=== PATIENT | male | born 1945 | race Caucasian/White ===

== ENCOUNTER → 2016-08-06 | Outpatient (REF) | payer MEDICARE ==
[2016-08-09 00:07] LABS: Lyme Disease IgG/IgM Antibodie <0.91 ISR (0.00-0.90); Lyme Disease IgM Ab Quantitati <0.80 index (0.00-0.79)
== END ==
LOC: M LAB REF 16:37
PROVIDERS: ATTEND Nurse Practitioner Family
DX: M79.1 Myalgia (principal); M25.50 Pain in unspecified joint

== ENCOUNTER → 2017-10-23 | Outpatient (CLI) | payer MEDICARE ==
[2017-10-23 10:48] LABS: HEMATOCRIT 44.7 % (42.0-52.0); HEMOGLOBIN 15.1 g/dl (13.5-17.5)
[2017-10-23 11:02] LABS: INR 0.94; PARTIAL THROMBOPLASTIN TIME 28.4 SECONDS (25.4-37.6); PROTHROMBIN TIME 12.7 SECONDS (12.1-14.4)
[2017-10-23 11:21] LABS: ANION GAP 7 MEQ/L (8-16); BLOOD UREA NITROGEN 17 MG/DL (7-18); CALCIUM LEVEL 8.7 MG/DL (8.8-10.2); CARBON DIOXIDE LEVEL 28 MEQ/L (21-32); CHLORIDE LEVEL 107 MEQ/L (98-107); CREATININE FOR GFR 0.99 MG/DL (0.70-1.30); GLOMERULAR FILTRATION RATE > 60.0 (>42); GLUCOSE, FASTING 113 MG/DL (70-100); POTASSIUM SERUM 4.5 MEQ/L (3.5-5.1); SODIUM LEVEL 142 MEQ/L (136-145)
== END ==
LOC: M LAB 09:49
DX: Z01.818 Encounter for other preprocedural examination (principal); M48.02 Spinal stenosis, cervical region; J44.9 Chronic obstructive pulmonary disease, unspecified; I48.91 Unspecified atrial fibrillation; I44.7 Left bundle-branch block, unspecified
CPT/HCPCS: 71046

== ENCOUNTER 2017-10-29 08:21 | Inpatient (IN) | payer MEDICARE ==
[2017-10-29] MEDS ORDERED: ROCURONIUM BROMIDE 50 MG/5 ML VIAL As Ordered (08:58)
[2017-10-29] MEDS ORDERED: LIDOCAINE 2% INJ 100 MG/5 ML SDV (FOR ANES.) As Ordered (08:58)
[2017-10-29] MEDS ORDERED: PROPOFOL 200 MG/20 ML VIAL As Ordered ×11 (08:58→14:41)
[2017-10-29] MEDS ORDERED: fentaNYL 100 MCG/2 ML INJECTION (J3010) As Ordered (08:59)
[2017-10-29] MEDS: methylPREDNISolone 250 MG in D5W 100 ML IV (09:45)
[2017-10-29] MEDS: PERCOCET 5MG/325MG TAB PO ×3 (09:45→21:26)
[2017-10-29] MEDS: GABAPENTIN 300 MG CAP PO (09:46)
[2017-10-29] MEDS: LR 1,000 ML IV ×2 (09:46→16:15)
[2017-10-29 09:49] LABS: BEDSIDE GLUCOSE 116 MG/DL (83-110)
[2017-10-29] MEDS: methylPREDNISolone 500 MG VIAL (J2930) As Ordered (10:26)
[2017-10-29] MEDS ORDERED: SUCCINYLCHOLINE 100 MG/5 ML SYRINGE (J0330) As Ordered (10:43)
[2017-10-29] MEDS ORDERED: REMIFENTANIL 1MG 3ML VIAL As Ordered ×4 (10:43→15:11)
[2017-10-29] MEDS ORDERED: ePHEDrine SULFATE 25 MG/5 ML(5MG/ML) SYRINGE As Ordered ×2 (12:42→13:33)
[2017-10-29] MEDS: ceFAZolin 2 GM/D5W 50 ML IV BAG (J0690 PER 500MG) As Ordered (12:42)
[2017-10-29] MEDS ORDERED: PHENYLephrine HCL 500 MCG/5 ML (100MCG/ML) SYRINGE (J2370) As Ordered ×3 (12:42→14:27)
[2017-10-29] MEDS: LIDOCAINE W/EPINEPHRINE 1% 20ML VIAL As Ordered (13:01)
[2017-10-29] MEDS ORDERED: CALCIUM CHLORIDE 10% 1 GM/10 ML SYR As Ordered (13:25)
[2017-10-29] MEDS: BACITRACIN PWD 50,000 UNITS VIAL As Ordered (15:23)
[2017-10-29] MEDS: THROMBIN SOLN 20,000 UNITS KIT As Ordered (15:24)
[2017-10-29] MEDS ORDERED: dexameTHASONE 4 MG/ML 1ML VIAL (J1100) As Ordered (15:33)
[2017-10-29] MEDS ORDERED: ONDANSETRON 4MG/2ML VIAL (J2405) As Ordered (15:33)
[2017-10-29] MEDS ORDERED: GLYCOPYRROLATE INJ 0.2 MG/ML 2 ML VIAL As Ordered (15:34)
[2017-10-29] MEDS ORDERED: METOCLOPRAMIDE INJ 10MG/2ML VIAL (J2765) IV (16:15)
[2017-10-29] MEDS ORDERED: MEPERIDINE INJ 25 MG/ML VIAL (J2175) IV (16:15)
[2017-10-29] MEDS ORDERED: ONDANSETRON 4MG/2ML VIAL (J2405) IV (16:15)
[2017-10-29] MEDS ORDERED: fentaNYL 100 MCG/2 ML INJECTION (J3010) IV (16:15)
[2017-10-29] MEDS ORDERED: IPRATROPIUM 0.5MG/ALBUTEROL 2.5MG INH SOL UD 3ML (DUONEB)(J7620) NEB (17:00)
[2017-10-29] MEDS ORDERED: MORPHINE 4 MG/ML 1ML VIAL/SYRINGE (J2270) IV (17:15)
[2017-10-29] MEDS ORDERED: MAGNESIUM CITRATE 300 ML BTL PO (17:15)
[2017-10-29] MEDS ORDERED: PERCOCET 5MG/325MG TAB PO (17:15)
[2017-10-29] MEDS: D5W/LR 1,000 ML IV (18:24)
[2017-10-29 20:06] LABS: BEDSIDE GLUCOSE 195 MG/DL (83-110)
[2017-10-29] MEDS: HumaLOG INSULIN (NovoLOG) PER UNIT SC (21:00)
[2017-10-29] MEDS: GABAPENTIN 100 MG CAP PO (21:25)
[2017-10-29] MEDS: MAGNESIUM OXIDE 400 MG TAB (MAG-OX) PO (21:26)
[2017-10-29] MEDS: SIMVASTATIN 40 MG TAB PO (21:26)
[2017-10-29] MEDS: ONDANSETRON 4MG/2ML VIAL (J2405) IV (21:27)
[2017-10-29] MEDS: ADVAIR HFA 115/21MCG INHALER INH (22:30)
[2017-10-30] MEDS: ALPRAZolam 0.25 MG TAB PO (02:41)
[2017-10-30] MEDS: ONDANSETRON 4MG/2ML VIAL (J2405) IV (02:41)
[2017-10-30 06:59] LABS: ANION GAP 9 MEQ/L (8-16); BLOOD UREA NITROGEN 19 MG/DL (7-18); CALCIUM LEVEL 8.6 MG/DL (8.8-10.2); CARBON DIOXIDE LEVEL 27 MEQ/L (21-32); CHLORIDE LEVEL 104 MEQ/L (98-107); CREATININE FOR GFR 1.21 MG/DL (0.70-1.30); GLOMERULAR FILTRATION RATE > 60.0 (>42); GLUCOSE, FASTING 156 MG/DL (70-100); POTASSIUM SERUM 4.2 MEQ/L (3.5-5.1); SODIUM LEVEL 140 MEQ/L (136-145)
[2017-10-30 07:55] LABS: HEMATOCRIT 42.5 % (42.0-52.0); HEMOGLOBIN 14.2 g/dl (13.5-17.5); MEAN CORPUSCULAR HEMOGLOBIN 31.3 pg (27.0-33.0); MEAN CORPUSCULAR HGB CONC 33.4 g/dl (32.0-36.5); MEAN CORPUSCULAR VOLUME 93.6 fl (80.0-96.0); PLATELET COUNT, AUTOMATED 231 10^3/uL (150-450); RED BLOOD COUNT 4.54 10^6/uL (4.30-6.10); RED CELL DISTRIBUTION WIDTH 13.7 % (11.5-14.5); WHITE BLOOD COUNT 15.4 10^3/uL (4.0-10.0)
[2017-10-30] MEDS: ADVAIR HFA 115/21MCG INHALER INH ×2 (08:09→21:16)
[2017-10-30] MEDS: TIOTROPIUM INHALER/CAPSULE (SPIRIVA) INH (08:12)
[2017-10-30] MEDS: BISOPROLOL FUMARATE 10 MG TAB PO (09:00)
[2017-10-30] MEDS: TAMSULOSIN 0.4 MG CAP PO (09:47)
[2017-10-30] MEDS: MIRALAX *UNIT DOSE* 17GM PACKET PO (09:47)
[2017-10-30] MEDS: HumaLOG INSULIN (NovoLOG) PER UNIT SC ×4 (09:47→21:00)
[2017-10-30] MEDS: METAMUCIL (PSYLLIUM) PACKET PO (09:47)
[2017-10-30] MEDS: FAMOTIDINE 20 MG TAB PO (09:48)
[2017-10-30] MEDS: CYANOCOBALAMIN 500 MCG TAB PO (09:48)
[2017-10-30] MEDS: GABAPENTIN 100 MG CAP PO ×3 (09:48→20:06)
[2017-10-30] MEDS: hydroCHLOROthiazide 12.5 MG CAPSULE PO (09:48)
[2017-10-30] MEDS: ASPIRIN 81 MG CHEW TABLET PO (09:48)
[2017-10-30] MEDS: MAGNESIUM OXIDE 400 MG TAB (MAG-OX) PO ×2 (09:49→20:07)
[2017-10-30] MEDS: PARoxetine 20 MG TAB PO (09:49)
[2017-10-30] MEDS: VALSARTAN 80 MG TAB (DIOVAN) PO (09:50)
[2017-10-30 11:52] LABS: BEDSIDE GLUCOSE 91 MG/DL (83-110)
[2017-10-30] MEDS ORDERED: traMADol 50 MG TAB PO (14:00)
[2017-10-30] MEDS: AZELASTINE 137MCG NASAL SPY 30 ML (ASTELIN) ×2 (14:21→20:06)
[2017-10-30] MEDS: ACETAMINOPHEN 500 MG TAB PO ×2 (14:22→21:56)
[2017-10-30 16:57] LABS: BEDSIDE GLUCOSE 117 MG/DL (83-110)
[2017-10-30] MEDS: SIMVASTATIN 40 MG TAB PO (20:07)
[2017-10-30 20:42] LABS: BEDSIDE GLUCOSE 128 MG/DL (83-110)
[2017-10-31] MEDS: ACETAMINOPHEN 500 MG TAB PO (05:43)
[2017-10-31 06:49] LABS: HEMATOCRIT 43.1 % (42.0-52.0); HEMOGLOBIN 14.1 g/dl (13.5-17.5); MEAN CORPUSCULAR HEMOGLOBIN 30.8 pg (27.0-33.0); MEAN CORPUSCULAR HGB CONC 32.7 g/dl (32.0-36.5); MEAN CORPUSCULAR VOLUME 94.1 fl (80.0-96.0); PLATELET COUNT, AUTOMATED 215 10^3/uL (150-450); RED BLOOD COUNT 4.58 10^6/uL (4.30-6.10); RED CELL DISTRIBUTION WIDTH 14.1 % (11.5-14.5); WHITE BLOOD COUNT 13.5 10^3/uL (4.0-10.0)
[2017-10-31 07:10] LABS: ANION GAP 5 MEQ/L (8-16); BLOOD UREA NITROGEN 21 MG/DL (7-18); CALCIUM LEVEL 8.7 MG/DL (8.8-10.2); CARBON DIOXIDE LEVEL 32 MEQ/L (21-32); CHLORIDE LEVEL 105 MEQ/L (98-107); CREATININE FOR GFR 1.13 MG/DL (0.70-1.30); GLOMERULAR FILTRATION RATE > 60.0 (>42); GLUCOSE, FASTING 102 MG/DL (70-100); MAGNESIUM LEVEL 2.3 MG/DL (1.8-2.4); POTASSIUM SERUM 4.1 MEQ/L (3.5-5.1); SODIUM LEVEL 142 MEQ/L (136-145)
[2017-10-31] MEDS: HumaLOG INSULIN (NovoLOG) PER UNIT SC (07:30)
[2017-10-31] MEDS: FAMOTIDINE 20 MG TAB PO (08:19)
[2017-10-31] MEDS: BISOPROLOL FUMARATE 10 MG TAB PO (08:19)
[2017-10-31] MEDS: CYANOCOBALAMIN 500 MCG TAB PO (08:19)
[2017-10-31] MEDS: hydroCHLOROthiazide 12.5 MG CAPSULE PO (08:20)
[2017-10-31] MEDS: GABAPENTIN 100 MG CAP PO (08:20)
[2017-10-31] MEDS: TAMSULOSIN 0.4 MG CAP PO (08:20)
[2017-10-31] MEDS: PARoxetine 20 MG TAB PO (08:20)
[2017-10-31] MEDS: MAGNESIUM OXIDE 400 MG TAB (MAG-OX) PO (08:20)
[2017-10-31] MEDS: VALSARTAN 80 MG TAB (DIOVAN) PO (08:20)
[2017-10-31] MEDS: AZELASTINE 137MCG NASAL SPY 30 ML (ASTELIN) (08:21)
[2017-10-31] MEDS: METAMUCIL (PSYLLIUM) PACKET PO (08:25)
[2017-10-31] MEDS: MIRALAX *UNIT DOSE* 17GM PACKET PO (08:25)
[2017-10-31] MEDS: ASPIRIN 81 MG CHEW TABLET PO (08:25)
[2017-10-31] MEDS: TIOTROPIUM INHALER/CAPSULE (SPIRIVA) INH (08:35)
[2017-10-31] MEDS: ADVAIR HFA 115/21MCG INHALER INH (08:35)
== END 2017-10-31 11:05 | disposition home or self-care (01) | DRG 472 ==
LOC: M OR 08:21 → M MS5PR 17:30
PROVIDERS: Orthopaedic Surgery
PROC: 0RG20K0 Fusion of 2 or more Cervical Vertebral Joints with Nonautologous Tissue Substitute, Anterior Approach, Anterior Column, Open Approach (ICD-10-PCS; principal; 2017-10-29 10:15)
PROC: 0RB30ZZ Excision of Cervical Vertebral Disc, Open Approach (ICD-10-PCS; 2017-10-29 10:15)
DX: M48.02 Spinal stenosis, cervical region (principal); I42.0 Dilated cardiomyopathy; I50.42 Chronic combined systolic (congestive) and diastolic (congestive) heart failure; I13.0 Hypertensive heart and chronic kidney disease with heart failure and stage 1 through stage 4 chronic kidney disease, or unspecified chronic kidney disease; M50.222 Other cervical disc displacement at C5-C6 level; F32.9 Major depressive disorder, single episode, unspecified; E11.9 Type 2 diabetes mellitus without complications; N40.0 Benign prostatic hyperplasia without lower urinary tract symptoms; F41.9 Anxiety disorder, unspecified; I25.10 Atherosclerotic heart disease of native coronary artery without angina pectoris; E78.00 Pure hypercholesterolemia, unspecified; J44.9 Chronic obstructive pulmonary disease, unspecified; K21.9 Gastro-esophageal reflux disease without esophagitis; K59.00 Constipation, unspecified; R11.0 Nausea; Z79.82 Long term (current) use of aspirin; Z79.84 Long term (current) use of oral hypoglycemic drugs; Z79.899 Other long term (current) drug therapy; Z98.41 Cataract extraction status, right eye; Z98.42 Cataract extraction status, left eye; E66.9 Obesity, unspecified; Z68.35 Body mass index [BMI] 35.0-35.9, adult

== ENCOUNTER → 2018-05-19 | Outpatient (CLI) | payer MEDICARE ==
[~2018-05-19] MED LIST: ADV250INH INH; ASPI1TAB PO; AZEL1SPR3; BISO10TA PO; COLA100C5 PO; FLOM0.4C39 PO; GABA-1171 PO; MAGN1SOL2 PO; MAGN400C PO; METF750T PO; MIRA3350 PO; NORCOTAB PO; PARO20TA3 PO; RANI150T PO; TIOT18INH INH; TYLE500T78 PO; VALS160T PO; VENTAER IN; VITA100067 PO; VITA500T3 PO; XANA0.5T PO; ZOCO40TA PO; ZOFR4TAB16 PO
--- NOTE | 2018-05-19 14:30 | REP ---
Chest two views HISTORY: Cough Comparison: 10/23/2017 The lungs are clear. The heart is normal in size. The pulmonary vasculature is normal in appearance. The bony structure is intact. IMPRESSION: No acute disease. Electronically Signed by Kong Tavera MD 05/19/2018 02:22 P
== END ==
LOC: M WUC 13:59
PROVIDERS: ATTEND Internal Medicine
DX: R05 Cough (principal); J44.9 Chronic obstructive pulmonary disease, unspecified

== ENCOUNTER → 2018-07-01 | Outpatient (CLI) | payer MEDICARE ==
--- NOTE | 2018-07-01 20:40 | REP ---
CT CHEST WITHOUT IV CONTRAST: CT chest was performed without IV contrast. COMPARISON: CT angiogram chest 12/29/2012. There is mild scattered interstitial fibrotic change bilaterally, predominately in the lung bases. There is mild bilateral lower lobe bronchiectasis. A tiny 3 mm nodular opacity in the superior segment of the right lower lobe is of doubtful significance. It is not definitely seen on the prior study. There is a small calcification in the right posterior costophrenic sulcus. There are mild pleural calcifications posteriorly in the left lower hemithorax. There is calcified granuloma in the inferior lingula. No mediastinal adenopathy is seen. There is mild atherosclerotic calcification of the thoracic aorta without aneurysm. The heart is not enlarged. There is no pleural or pericardial effusion. There is no axillary adenopathy. There are cysts in the dome of the liver which appear unchanged compared to the prior CT exam. There are mild diffuse degenerative changes of the spine. IMPRESSION: Mild interstitial fibrosis predominately in the lower lobes with mild bilateral lower lobe bronchiectasis. Tiny calcified granuloma right posterior costophrenic sulcus and inferior lingula. Tiny 3 mm nodular opacity in the superior segment of the right lower lobe posteriorly is of doubtful significance. There are mild posterior pleural calcifications in the left lower hemithorax. Electronically Signed by Oli Villarreal MD 07/02/2018 02:38 P
== END ==
LOC: M RAD 15:39
PROVIDERS: ATTEND Internal Medicine Pulmonary Disease
DX: J98.4 Other disorders of lung (principal); J47.9 Bronchiectasis, uncomplicated; J84.10 Pulmonary fibrosis, unspecified; R91.8 Other nonspecific abnormal finding of lung field

== ENCOUNTER → 2019-07-08 | Outpatient (REF) | payer MEDICARE ==
[~2019-07-08] MED LIST changes: -ASPI1TAB PO; +ASPI81TA26 PO; -BISO10TA PO; +BISO10TA13 PO; +CYAN500T8 PO; +HYDR-3715 PO; -METF750T PO; +METF750T36 PO; -NORCOTAB PO; -VALS160T PO; +VALS160T2 PO; -VITA500T3 PO
== END ==
LOC: M LAB REF 12:24
PROVIDERS: ATTEND Internal Medicine
DX: Z79.899 Other long term (current) drug therapy (principal)

== ENCOUNTER → 2021-03-06 | Outpatient (REF) | payer MEDICARE ==
[~2021-03-06] MED LIST changes: +CYAN500T14 PO; -CYAN500T8 PO
[2021-03-06 13:44] LABS: INR 0.89; PROTHROMBIN TIME 12.4 SECONDS (12.7-14.5)
[2021-03-06 13:45] LABS: PARTIAL THROMBOPLASTIN TIME 29.1 SECONDS (25.9-37.0)
[2021-03-06 13:52] LABS: APPEARANCE, URINE CLEAR (CLEAR); BACTERIA, URINE AUTO NEGATIVE (NEGATIVE); BILIRUBIN, URINE AUTO NEGATIVE (NEGATIVE); BLOOD, URINE BLOOD 1+ (NEGATIVE); COLOR, URINE YELLOW (YELLOW); GLUCOSE, URINE (UA) AUTO 3+ mg/dL (NEGATIVE); KETONE, URINE AUTO NEGATIVE (NEGATIVE); LEUKOCYTE ESTERASE, URINE AUTO NEGATIVE (NEGATIVE); MUCUS, URINE SMALL (NEGATIVE); NITRITE, URINE AUTO NEGATIVE (NEGATIVE); PROTEIN, URINE AUTO 2+ mg/dL (NEGATIVE); RBC, URINE AUTO 0 /HPF (0-3); SPECIFIC GRAVITY URINE AUTO 1.025 (1.002-1.035); SQUAMOUS EPITHELIAL CELL UR AU 0 /HPF (0-6); UROBILINOGEN, URINE AUTO 0.2 mg/dL (0.0-2.0); WBC, URINE AUTO 1 /HPF (0-3)
== END ==
LOC: M LAB REF 12:52
PROVIDERS: ATTEND Internal Medicine
DX: Z01.818 Encounter for other preprocedural examination (principal)

== ENCOUNTER → 2021-03-08 | Outpatient (CLI) | payer MEDICARE ==
--- NOTE | 2021-03-08 10:51 | REP ---
INDICATION: BRONCHIECTESIS COMPARISON: 05/19/2018 TECHNIQUE: PA and lateral. FINDINGS: The mediastinum and cardiac silhouette are normal. The lung ornelas are clear and without acute consolidation, effusion, or pneumothorax. The skeletal structures are intact and normal. IMPRESSION: No acute cardiopulmonary process. <Electronically signed by Aiden Nguyne > 03/08/21 [id number]
== END ==
LOC: M WUC 10:10
PROVIDERS: ATTEND Internal Medicine
DX: J47.9 Bronchiectasis, uncomplicated (principal)

== ENCOUNTER → 2023-08-02 | Outpatient (CLI) | payer MEDICARE ==
[~2023-08-02] MED LIST changes: +SIMV-254 PO; -ZOCO40TA PO
== END ==
LOC: M RAD 11:56
PROVIDERS: ATTEND Otolaryngology
DX: R05.3 Chronic cough (principal); J98.11 Atelectasis

== ENCOUNTER → 2023-09-16 | Outpatient (CLI) | payer MEDICARE | LOC: M CARPUL 12:58 | PROVIDERS: ATTEND Internal Medicine | DX: I50.42 Chronic combined systolic (congestive) and diastolic (congestive) heart failure (principal); I35.8 Other nonrheumatic aortic valve disorders; R93.1 Abnormal findings on diagnostic imaging of heart and coronary circulation ==

== ENCOUNTER → 2023-12-20 | Outpatient (CLI) | payer MEDICARE | LOC: M RAD 10:56 | PROVIDERS: ATTEND Otolaryngology | DX: J32.9 Chronic sinusitis, unspecified (principal); J34.2 Deviated nasal septum ==

== ENCOUNTER → 2025-02-15 | Outpatient (CLI) | payer MEDICARE ==
[~2025-02-15] MED LIST changes: -ADV250INH INH; +ADVA1AER9 INH; -FLOM0.4C39 PO; +TAMS-18 PO
== END ==
LOC: M WUC 11:18
PROVIDERS: ATTEND Internal Medicine
DX: M79.89 Other specified soft tissue disorders (principal); R07.89 Other chest pain; R07.81 Pleurodynia; M17.12 Unilateral primary osteoarthritis, left knee

== ENCOUNTER → 2025-02-23 | Outpatient (CLI) | payer MEDICARE | LOC: M RAD 12:46 | DX: M79.605 Pain in left leg (principal); M25.562 Pain in left knee ==

== ENCOUNTER → 2025-03-01 | Outpatient (CLI) | payer MEDICARE | LOC: M RAD 09:59 | DX: M79.662 Pain in left lower leg (principal); M79.89 Other specified soft tissue disorders ==

== ENCOUNTER → 2025-03-29 | Outpatient (CLI) | payer MEDICARE | LOC: M SOG 07:43 | PROVIDERS: ATTEND Orthopaedic Surgery | DX: M25.562 Pain in left knee (principal) ==